=== PATIENT | male | born 1980 | race African-American/Black ===

== ENCOUNTER 2018-04-11 15:09 | Emergency (ER) | payer SELFPAY ==
[2018-04-11 15:16] VITALS: BP 119/76; PULSE 93; RESP 20; TEMP 37; O2SAT 99
--- NOTE | 2018-04-11 15:39 | W.ED.GENAD ---
Discharge Plan Disposition Patient Disposition: HOME Condition: Good Discharge Details Chief Complaint: RespSymp Clinical Impression: URI (upper respiratory infection) Primary Care Provider: Carley Mercado ED Provider: Kvng Chu Home Meds and New Rx's Prescriptions: No Action acetaminophen [Tylenol] 325 mg Tablet 2 RF: 0 Discharge Instructions Instructions: Upper Respiratory Infection (ED) Additional Instructions: Please drink 8-10 cups of water per day. Take Tylenol or Motrin if you have any sore throat that develops. Please stop smoking immediately. If you do go to work please wear a mask. Please wash her hands regularly. If you notice any worsening of your symptoms, or any new symptoms such as vomiting, diarrhea, fever, chills, shortness of breath, chest pain, numbness, weakness, or fainting , please return immediately to the emergency department for reevaluation. Please follow up with your primary care provider as soon as possible for reassessment and reevaluation. As always, it was a pleasure participating in your medical care today. Stand Alone Forms: Work Release Referrals: Carley Mercado [Primary Care Provider] - Medical Decision Making MDM Narrative Medical decision making narrative: This is a very pleasant 38-year-old male who presents for evaluation of less than 12 hours of a dry nonproductive cough with no associated fever chills sore throat. Physical exam shows no signs of otitis media, significant erythema in the oropharynx, or other abnormalities. He has no red flags of hemoptysis, trauma, fever or chills. Physical exam demonstrates clear lung sounds, normal vital signs, no tachycardia or hypoxemia. Feels symptoms may be combination of mild bronchitis from his chronic smoking and an early upper respiratory infection. Is asking for a work note and I think this is reasonable. I feel that the patient be discharged home with instructions for continued fluid intake, Tylenol or Motrin if he does develop sore throat, and prompt return if his symptoms worsen. We discussed red flags for stricture and the patient understands. I did encourage the patient to stop smoking immediately. I have extensively reviewed the treatment plan and discharge instructions with the patient. I have addressed all patient concerns at this time. The patient was made aware of what symptoms to monitor for that would warrant a return to the emergency department. Discussed the plan with the patient, they demonstrate verbal understanding and agreement with our assessment and plan at this time. HPI - General Adult General Date/Time Provider Initiated Documentation: 04/11/18 15:39. HPI Narrative: This is a 38-year-old -[place] male with past medical history of an appendectomy who smokes 1 pack per day, who presents today for 12 hours of dry nonproductive cough with no associated sore throat, fever, chills, chest pain, shortness of breath, numbness, tingling, or weakness. His symptoms are not improved or relieved by anything in particular. He denies any arm or neck pain. He denies any hemoptysis. He denies any other associated symptoms. No other complaints at this time. Patient states that I really am just here to get a work note, I have to go to work at 4 PM denies any IV or illicit drug use. He has no other complaints at this time. Related Data Home Medications Medication Instructions Recorded Confirmed acetaminophen [Tylenol] 2 04/11/18 Allergies Allergy/AdvReac Type Severity Reaction Status Date / Time Sulfa (Sulfonamide Allergy Unverified 09/21/17 06:15 Antibiotics) General Stated Complaint: RespSymp TATUM: 4 Review of Systems Review of Systems 10 point review of systems was performed, pertinent positives and negatives are noted in the history of present illness. [facility] Social History Smoking/Tobacco Use Status: Current every day Exam Narrative Exam Narrative: 1.Const: Well-nourished, Well-developed, appearing stated age 2.Eyes: PERRL, no conjunctival injection, and symmetrical lids. 3.ENT: Atraumatic external nose and ears. Moist MM. Neck: Symmetric, trachea midline, No thyromegaly. No significant cervical lymphadenopathy. No significant erythema in the posterior oropharynx. 4.CVS: +S1/S2, No murmurs or gallops. Peripheral pulses 2+ and equal in all extremities. Brisk capillary refill in all extremities. 5.RESP: Unlabored respiratory effort. Clear to auscultation bilaterally. No wheezes rales or rhonchi 6.GI: Soft, Nontender/Nondistended, No hepatosplenomegaly. No guarding or rebound. 7.MSK: Normocephalic/Atraumatic, Extremities w/o deformity or ttp No cyanosis or clubbing, Normal movement of all extremities 8.Skin: Warm, Dry. No rashes or lesions. 9.Neuro: tubing tester II-XII grossly intact. Sensation grossly intact, no focal neurologic deficits. 10.Psych: (AAO) x3. Appropriate mood and affect Course Vital Signs Temperature 37 C 04/11/18 15:16 Pulse 93 H 04/11/18 15:16 Respiratory Rate 20 04/11/18 15:16 Blood Pressure 119/76 04/11/18 15:16 Pulse Oximetry 99 04/11/18 15:16 Temperature 37 C 04/11/18 15:16 Pulse 93 H 04/11/18 15:16 Respiratory Rate 20 04/11/18 15:16 Blood Pressure 119/76 04/11/18 15:16 Pulse Oximetry 99 04/11/18 15:16
--- NOTE | 2018-04-11 15:43 | ED.GENADUL_ITS ---
Discharge Plan Disposition Patient Disposition: HOME Condition: Good Discharge Details Chief Complaint: RespSymp Clinical Impression: URI (upper respiratory infection) Primary Care Provider: Carley Mercado ED Provider: Kvng Chu Home Meds and New Rx's Prescriptions: No Action acetaminophen [Tylenol] 325 mg Tablet 2 RF: 0 Discharge Instructions Instructions: Upper Respiratory Infection (ED) Additional Instructions: Please drink 8-10 cups of water per day. Take Tylenol or Motrin if you have any sore throat that develops. Please stop smoking immediately. If you do go to work please wear a mask. Please wash her hands regularly. If you notice any worsening of your symptoms, or any new symptoms such as vomiting, diarrhea, fever, chills, shortness of breath, chest pain, numbness, weakness, or fainting , please return immediately to the emergency department for reevaluation. Please follow up with your primary care provider as soon as possible for reassessment and reevaluation. As always, it was a pleasure participating in your medical care today. Stand Alone Forms: Work Release Referrals: Carley Mercado [Primary Care Provider] - Medical Decision Making MDM Narrative Medical decision making narrative: This is a very pleasant 38-year-old male who presents for evaluation of less than 12 hours of a dry nonproductive cough with no associated fever chills sore throat. Physical exam shows no signs of otitis media, significant erythema in the oropharynx, or other abnormalities. He has no red flags of hemoptysis, trauma, fever or chills. Physical exam demonstrates clear lung sounds, normal vital signs, no tachycardia or hypoxemia. Feels symptoms may be combination of mild bronchitis from his chronic smoking and an early upper respiratory infection. Is asking for a work note and I think this is reasonable. I feel that the patient be discharged home with instructions for continued fluid intake, Tylenol or Motrin if he does develop sore throat, and prompt return if his symptoms worsen. We discussed red flags for stricture and the patient understands. I did encourage the patient to stop smoking immediately. I have extensively reviewed the treatment plan and discharge instructions with the patient. I have addressed all patient concerns at this time. The patient was made aware of what symptoms to monitor for that would warrant a return to the emergency department. Discussed the plan with the patient, they demonstrate verbal understanding and agreement with our assessment and plan at this time. HPI - General Adult General Date/Time Provider Initiated Documentation: 04/11/18 15:39 . HPI Narrative: This is a 38-year-old -[place] male with past medical history of an appendectomy who smokes 1 pack per day, who presents today for 12 hours of dry nonproductive cough with no associated sore throat, fever, chills, chest pain, shortness of breath, numbness, tingling, or weakness. His symptoms are not improved or relieved by anything in particular. He denies any arm or neck pain. He denies any hemoptysis. He denies any other associated symptoms. No other complaints at this time. Patient states that I really am just here to get a work note, I have to go to work at 4 PM denies any IV or illicit drug use. He has no other complaints at this time. Related Data Home Medications Medication Instructions Recorded Confirmed acetaminophen [Tylenol] 2 04/11/18 Allergies Allergy/AdvReac Type Severity Reaction Status Date / Time Sulfa (Sulfonamide Allergy Unverified 09/21/17 06:15 Antibiotics) General Stated Complaint: RespSymp TATUM: 4 Review of Systems Review of Systems 10 point review of systems was performed, pertinent positives and negatives are noted in the history of present illness. [facility] Social History Smoking/Tobacco Use Status: Current every day Exam Narrative Exam Narrative: 1.Const: Well-nourished, Well-developed, appearing stated age 2.Eyes: PERRL, no conjunctival injection, and symmetrical lids. 3.ENT: Atraumatic external nose and ears. Moist MM. Neck: Symmetric, trachea midline, No thyromegaly. No significant cervical lymphadenopathy. No significant erythema in the posterior oropharynx. 4.CVS: +S1/S2, No murmurs or gallops. Peripheral pulses 2+ and equal in all extremities. Brisk capillary refill in all extremities. 5.RESP: Unlabored respiratory effort. Clear to auscultation bilaterally. No wheezes rales or rhonchi 6.GI: Soft, Nontender/Nondistended, No hepatosplenomegaly. No guarding or rebound. 7.MSK: Normocephalic/Atraumatic, Extremities w/o deformity or ttp No cyanosis or clubbing, Normal movement of all extremities 8.Skin: Warm, Dry. No rashes or lesions. 9.Neuro: applied psychology chair II-XII grossly intact. Sensation grossly intact, no focal neurologic deficits. 10.Psych: (AAO) x3. Appropriate mood and affect Course Vital Signs Temperature 37 C 04/11/18 15:16 Pulse 93 H 04/11/18 15:16 Respiratory Rate 20 04/11/18 15:16 Blood Pressure 119/76 04/11/18 15:16 Pulse Oximetry 99 04/11/18 15:16 Temperature 37 C 04/11/18 15:16 Pulse 93 H 04/11/18 15:16 Respiratory Rate 20 04/11/18 15:16 Blood Pressure 119/76 04/11/18 15:16 Pulse Oximetry 99 04/11/18 15:16
== END 2018-04-11 15:43 | disposition home or self-care (01) ==
PROVIDERS: Emergency Provider Student in an Organized Health Care Education/Training Program; PCP Nurse Practitioner Family
DX: J06.9 Acute upper respiratory infection, unspecified (principal); F17.210 Nicotine dependence, cigarettes, uncomplicated
CPT/HCPCS: 99282

== ENCOUNTER 2018-06-04 08:07 | Outpatient (RCR) | payer SELFPAY ==
--- NOTE | 2018-06-04 08:09 | COCO.VHC ---
New/Renewal Application Status: Renewal Application Submitted?: Yes Date Submitted:: 05/21/18 [facility] REP Name:: Brent Notes:: Adriano and I called the [facility] ansd did the renewal over the phone. He has a doctors appoitnment coming up so we also notified them of this appointment.
--- NOTE | 2018-06-04 08:11 | PDOC.VHC_ITS ---
New/Renewal Application Status: Renewal Application Submitted?: Yes Date Submitted:: 05/21/18 [facility] REP Name:: Brent Notes:: Adriano and I called the [facility] ansd did the renewal over the phone. He has a doctors appoitnment coming up so we also notified them of this appointment.
== END 2018-07-02 23:59 | disposition home or self-care (01) ==
LOC: COCO 08:07
PROVIDERS: PCP Nurse Practitioner Family; Visit Provider Nurse Practitioner Family
DX: R69 Illness, unspecified (principal)

== ENCOUNTER 2018-12-02 07:39 | Emergency (ER) | payer MEDICAID, SELFPAY ==
[2018-12-02 07:43] VITALS: BP 149/98; PULSE 103; RESP 12; TEMP 36.6; O2SAT 98
--- NOTE | 2018-12-02 07:58 | W.ED.GENAD ---
Discharge Plan Disposition Patient Disposition: HOME Condition: Fair Discharge Details Chief Complaint: DentalOral Clinical Impression: Abscess, dental Primary Care Provider: None,None ED Provider: Danica Dawson Home Meds and New Rx's Prescriptions: New clindamycin HCl 150 mg capsule 450 mg PO TID Qty: 63 RF: 0 ibuprofen 600 mg tablet 600 mg PO QID PRN (Reason: pain) Qty: 20 RF: 0 Continued acetaminophen [Tylenol] 325 mg Tablet 2 RF: 0 ibuprofen 600 mg Tablet 600 mg PO TID RF: 0 Discharge Instructions Instructions: Dental Abscess (ED) Additional Instructions: Encourage hydration. Continue with Tylenol and ibuprofen. Please take clindamycin as prescribed, 3 tablets 3 times a day for the next 7 days. If you develop fever/chills, increased pain, increased swelling, inability or difficulty opening your mouth, difficulty swollowing or other new/worsening symptoms please seek care urgently once again. Keep upcoming appointment with your dentist Stand Alone Forms: Work Release Medical Decision Making Patient is a 38-year-old male presented today with chief complaint of right lower dental pain. Reports that he has been having pain for the past several weeks in this area but that over the past week it greatly increased. Concern for infection is seen at this morning when shaving the right lower aspect of his face was swollen. He denies any fevers or chills. Denies other any other recent illness. Patient has an upcoming appointment with a dentist but was unable to get with and with them sooner and advised to be assessed in the emergency department. On exam, patient appears in no acute distress, is nontoxic appearing. Does have notable swelling and an abscess consistent with the area of swelling along the buccal side of the right lower dentition. Patient I discussed diagnosis of abscess. We discussed the risk/benefits of drainage and expected procedural steps. He was understanding and wished to proceed Procedure: Area was first anesthetized with Hurricaine gel. The area was then further anesthetized with 1% lidocaine plain, 2 cc was injected. The sufficiently anesthetized the area. 11 blade was used to incise the area. Scant amount of thick yellow drainage was extracted. The area was massaged and attempt to extract as much as possible. Patient use swish and swallow technique to try and further promote extraction. He tolerated this procedure well. Patient I discussed care of the incised area. We discussed new/worsening symptoms and when he should seek care urgently once again. He has an upcoming appointment with his dentist. Advised the only keep this even if symptoms improve. Patient will be placed on clindamycin for infection. He is requesting prescription for ibuprofen. All of his questions and concerns were addressed and he is in agreement with this plan. Patient does not have primary care, I have asked our pharmacist critical care to help facilitate primary care appointment HPI General Mode of arrival: ambulatory. Date/Time Provider Initiated Documentation: 12/02/18 07:58. Limitations to Documentation: no limitations. Information obtained by: patient and RN notes reviewed. History of Present Illness 38 year old M presents to the emergency department with the chief complaint of right lower dental pain, described as severe, with intensity rated at 10. Quality is described as aching, and is localized to the mouth. Patient reports no radiation. Patient started experiencing this week(s) and it has been constant. No relieving factors improve symptom(s), Eating worsens symptoms . Patient notes no other symptoms.; denies chest pain, cough, diaphoresis, fever/chills, headaches, nausea/vomiting, rash and shortness of breath. Patient did receive the following treatments prior to arrival, none Related Data Home Medications Medication Instructions Recorded Confirmed acetaminophen [Tylenol] 2 04/11/18 clindamycin HCl 450 mg PO TID #63 cap 12/02/18 ibuprofen 600 mg PO QID PRN #20 tab 12/02/18 ibuprofen 600 mg PO TID 12/02/18 12/02/18 Previous Rx's Medication Instructions Recorded clindamycin HCl 450 mg PO TID #63 cap 12/02/18 ibuprofen 600 mg PO QID PRN #20 tab 12/02/18 Allergies Allergy/AdvReac Type Severity Reaction Status Date / Time Sulfa (Sulfonamide Allergy Unverified 12/02/18 07:47 Antibiotics) General Stated Complaint: DentalOral TATUM: 4 Review of Systems Constitutional Reports as per HPI, Denies chills, Denies fatigue, Denies fever(s), Denies headache(s) and Denies poor appetite Eyes Denies change in vision and Denies irritation ENT Reports as per HPI, Reports dental pain, Denies dysphagia, Denies dizziness, Denies dry mouth, Denies ear discharge, Denies otalgia, Reports facial pain, Denies headache(s), Denies hoarseness, Denies lip swelling, Denies nasal congestion, Denies odynophagia and Denies sore throat Cardiovascular Reports as per HPI and Denies chest pain Respiratory Reports as per HPI and Denies cough Gastrointestinal Reports as per HPI, Denies dysphagia, Denies nausea, Denies odynophagia and Denies vomiting Integumentary/Breasts Reports as per HPI, Denies erythema, Denies rash and Denies skin pain Neurologic Reports as per HPI, Denies dizziness and Denies headache(s) Endocrine Denies fatigue Allergic/Immunologic Denies lip swelling [facility] Social History Smoking/Tobacco Use Status: Current every day Drug use: Occasionally Do you feel safe at home: Yes Do you feel safe in your relationship?: Yes Exam Const General: cooperative, healthy appearing, comfortable, no acute distress, well developed and well groomed Nutritional Appearance: average body habitus and well nourished Orientation: alert and awake HENMT Head: normal to inspection, normocephalic and atraumatic Ears: hearing grossly normal bilaterally, external ears normal and TM's normal bilaterally General nose exam: external nose normal and nares normal Face and sinus: sinuses nontender and face asymmetric (patient has swelling noted along right inferior mandibular edge) Mouth: oral mucosae normal, lip normal and tongue normal Teeth and gingiva: abnormal dentition (broken tooth) Throat: posterior oropharynx normal, tonsils normal and uvula midline Eyes General: appearance normal, both eyes and all related structures Neck Neck: normal visual inspection, full ROM, no lymphadenopathy, supple and no anterior neck swelling Resp Effort & Inspection: normal respiratory effort, able to speak in complete sentences and no respiratory distress Auscultation: clear to auscultation bilaterally, no rales, no rhonchi and no wheezes Cardio Rate: regular rate Rhythm: regular rhythm Heart Sounds: S1 normal and S2 normal Skin General skin exam: no rashes or lesions noted Trauma: no lacerations or abrasions Neuro General: alert and awake Cognition: normal cognition Speech: speech normal Gait: normal gait Psych Appearance: grossly normal and well kempt Mental Status: mental status grossly normal Speech and Movement: speech and movement normal Course Vital Signs Temperature 36.6 C 12/02/18 07:43 Pulse 103 H 12/02/18 07:43 Respiratory Rate 12 12/02/18 07:43 Blood Pressure 149/98 H 12/02/18 07:43 Pulse Oximetry 98 12/02/18 07:43 Temperature 36.6 C 12/02/18 07:43 Temperature Source Temporal Artery Scan 12/02/18 07:43 Pulse 103 H 12/02/18 07:43 Respiratory Rate 12 12/02/18 07:43 Respiratory Effort Non-Labored 12/02/18 07:45 Blood Pressure 149/98 H 12/02/18 07:43 Blood Pressure Position Sitting 12/02/18 07:43 Pulse Oximetry 98 12/02/18 07:43 Oxygen Delivery Method Blow by 12/02/18 07:43 Oxygen Flow Rate 0 12/02/18 07:43 Pain Level 10 12/02/18 07:43
--- NOTE | 2018-12-02 08:07 | ED.GENADUL_ITS ---
Discharge Plan Disposition Patient Disposition: HOME Condition: Fair Discharge Details Chief Complaint: DentalOral Clinical Impression: Abscess, dental Primary Care Provider: None,None ED Provider: Danica Dawson Home Meds and New Rx's Prescriptions: New clindamycin HCl 150 mg capsule 450 mg PO TID Qty: 63 RF: 0 ibuprofen 600 mg tablet 600 mg PO QID PRN (Reason: pain) Qty: 20 RF: 0 Continued acetaminophen [Tylenol] 325 mg Tablet 2 RF: 0 ibuprofen 600 mg Tablet 600 mg PO TID RF: 0 Discharge Instructions Instructions: Dental Abscess (ED) Additional Instructions: Encourage hydration. Continue with Tylenol and ibuprofen. Please take clindamycin as prescribed, 3 tablets 3 times a day for the next 7 days. If you develop fever/chills, increased pain, increased swelling, inability or difficulty opening your mouth, difficulty swollowing or other new/worsening symptoms please seek care urgently once again. Keep upcoming appointment with your dentist Stand Alone Forms: Work Release Medical Decision Making Patient is a 38-year-old male presented today with chief complaint of right lower dental pain. Reports that he has been having pain for the past several weeks in this area but that over the past week it greatly increased. Concern for infection is seen at this morning when shaving the right lower aspect of his face was swollen. He denies any fevers or chills. Denies other any other recent illness. Patient has an upcoming appointment with a dentist but was unable to get with and with them sooner and advised to be assessed in the emergency department. On exam, patient appears in no acute distress, is nontoxic appearing. Does have notable swelling and an abscess consistent with the area of swelling along the buccal side of the right lower dentition. Patient I discussed diagnosis of abscess. We discussed the risk/benefits of drainage and expected procedural steps. He was understanding and wished to proceed Procedure: Area was first anesthetized with Hurricaine gel. The area was then further anesthetized with 1% lidocaine plain, 2 cc was injected. The sufficiently anesthetized the area. 11 blade was used to incise the area. Scant amount of thick yellow drainage was extracted. The area was massaged and attempt to extract as much as possible. Patient use swish and swallow technique to try and further promote extraction. He tolerated this procedure well. Patient I discussed care of the incised area. We discussed new/worsening symptoms and when he should seek care urgently once again. He has an upcoming appointment with his dentist. Advised the only keep this even if symptoms improve. Patient will be placed on clindamycin for infection. He is requesting prescription for ibuprofen. All of his questions and concerns were addressed and he is in agreement with this plan. Patient does not have primary care, I have asked our healthcare representative to help facilitate primary care appointment HPI General Mode of arrival: ambulatory . Date/Time Provider Initiated Documentation: 12/02/18 07:58 . Limitations to Documentation: no limitations . Information obtained by: patient and RN notes reviewed . History of Present Illness 38 year old M presents to the emergency department with the chief complaint of right lower dental pain, described as severe, with intensity rated at 10. Quality is described as aching, and is localized to the mouth. Patient reports no radiation. Patient started experiencing this week(s) and it has been constant. No relieving factors improve symptom(s), Eating worsens symptoms . Patient notes no other symptoms.; denies chest pain, cough, diaphoresis, fever/chills, headaches, nausea/vomiting, rash and shortness of breath. Patient did receive the following treatments prior to arrival, none Related Data Home Medications Medication Instructions Recorded Confirmed acetaminophen [Tylenol] 2 04/11/18 clindamycin HCl 450 mg PO TID #63 cap 12/02/18 ibuprofen 600 mg PO QID PRN #20 tab 12/02/18 ibuprofen 600 mg PO TID 12/02/18 12/02/18 Previous Rx's Medication Instructions Recorded clindamycin HCl 450 mg PO TID #63 cap 12/02/18 ibuprofen 600 mg PO QID PRN #20 tab 12/02/18 Allergies Allergy/AdvReac Type Severity Reaction Status Date / Time Sulfa (Sulfonamide Allergy Unverified 12/02/18 07:47 Antibiotics) General Stated Complaint: DentalOral TATUM: 4 Review of Systems Constitutional Reports as per HPI, Denies chills, Denies fatigue, Denies fever(s), Denies headache(s) and Denies poor appetite Eyes Denies change in vision and Denies irritation ENT Reports as per HPI, Reports dental pain, Denies dysphagia, Denies dizziness, Denies dry mouth, Denies ear discharge, Denies otalgia, Reports facial pain, Denies headache(s), Denies hoarseness, Denies lip swelling, Denies nasal congestion, Denies odynophagia and Denies sore throat Cardiovascular Reports as per HPI and Denies chest pain Respiratory Reports as per HPI and Denies cough Gastrointestinal Reports as per HPI, Denies dysphagia, Denies nausea, Denies odynophagia and Denies vomiting Integumentary/Breasts Reports as per HPI, Denies erythema, Denies rash and Denies skin pain Neurologic Reports as per HPI, Denies dizziness and Denies headache(s) Endocrine Denies fatigue Allergic/Immunologic Denies lip swelling [facility] Social History Smoking/Tobacco Use Status: Current every day Drug use: Occasionally Do you feel safe at home: Yes Do you feel safe in your relationship?: Yes Exam Const General: cooperative, healthy appearing, comfortable, no acute distress, well developed and well groomed Nutritional Appearance: average body habitus and well nourished Orientation: alert and awake HENMT Head: normal to inspection, normocephalic and atraumatic Ears: hearing grossly normal bilaterally, external ears normal and TM's normal bilaterally General nose exam: external nose normal and nares normal Face and sinus: sinuses nontender and face asymmetric (patient has swelling noted along right inferior mandibular edge) Mouth: oral mucosae normal, lip normal and tongue normal Teeth and gingiva: abnormal dentition (broken tooth) Throat: posterior oropharynx normal, tonsils normal and uvula midline Eyes General: appearance normal, both eyes and all related structures Neck Neck: normal visual inspection, full ROM, no lymphadenopathy, supple and no anterior neck swelling Resp Effort & Inspection: normal respiratory effort, able to speak in complete sentences and no respiratory distress Auscultation: clear to auscultation bilaterally, no rales, no rhonchi and no wheezes Cardio Rate: regular rate Rhythm: regular rhythm Heart Sounds: S1 normal and S2 normal Skin General skin exam: no rashes or lesions noted Trauma: no lacerations or abrasions Neuro General: alert and awake Cognition: normal cognition Speech: speech normal Gait: normal gait Psych Appearance: grossly normal and well kempt Mental Status: mental status grossly normal Speech and Movement: speech and movement normal Course Vital Signs Temperature 36.6 C 12/02/18 07:43 Pulse 103 H 12/02/18 07:43 Respiratory Rate 12 12/02/18 07:43 Blood Pressure 149/98 H 12/02/18 07:43 Pulse Oximetry 98 12/02/18 07:43 Temperature 36.6 C 12/02/18 07:43 Temperature Source Temporal Artery Scan 12/02/18 07:43 Pulse 103 H 12/02/18 07:43 Respiratory Rate 12 12/02/18 07:43 Respiratory Effort Non-Labored 12/02/18 07:45 Blood Pressure 149/98 H 12/02/18 07:43 Blood Pressure Position Sitting 12/02/18 07:43 Pulse Oximetry 98 12/02/18 07:43 Oxygen Delivery Method Blow by 12/02/18 07:43 Oxygen Flow Rate 0 12/02/18 07:43 Pain Level 10 12/02/18 07:43
== END 2018-12-02 08:38 | disposition home or self-care (01) ==
PROVIDERS: Emergency Provider Physician Assistant
DX: K04.7 Periapical abscess without sinus (principal); F17.210 Nicotine dependence, cigarettes, uncomplicated
CPT/HCPCS: 99283

== ENCOUNTER 2019-05-23 14:16 | Outpatient (REF) | payer MEDICAID, SELFPAY ==
[2019-05-23 18:43] LABS: HCT 44.2 % (40.0-50.0); HGB 14.6 g/dL (13.5-17.5); Mean Corpuscular Hemoglobin 28.3 pg (27.0-33.0); Mean Corpuscular Volume 85.7 fL (80-95); Mean Platelet Volume 11.7 fL (8.0-11.0); Platelet Count 237 x1000/uL (130-400); RBC 5.16 m/cumm (4.50-6.00); RBC Distribution Width 14.8 % (11.8-14.1); White Blood Cell Count 6.48 k/cumm (4.4-10.8)
[2019-05-23 18:51] LABS: ALT 34 U/L (16-63); AST 26 U/L (15-37); Albumin 4.1 g/dL (3.4-5.0); Alkaline Phosphatase 60 U/L (46-116); Anion Gap 9.4 mmol/L (3-11); BUN 13 mg/dL (7-18); Bilirubin, Total 0.3 mg/dL (0.2-1.0); CO2 29.6 mmol/L (21.0-32.0); CREATININE 1.33 mg/dL (0.70-1.30); Calcium 9.3 mg/dL (8.5-10.1); Calculated LDL 175 mg/dL; Chloride 103 mmol/L (98-107); Cholesterol 243 mg/dL (50-200); Glucose 88 mg/dL (70-100); HDL Cholesterol 52 mg/dL (40-60); Potassium 4.2 mmol/L (3.5-5.1); Sodium 142 mmol/L (136-145); Total Protein 7.7 g/dL (6.4-8.2); Triglyceride 82 mg/dL (30-150)
[2019-05-23 19:36] LABS: COMMENT (LAB VIEW ONLY) 180.52 mg/dL; Microalb ug/mg Crea 2.9 ug/mg Cr
== END 2019-05-23 14:36 ==
LOC: NCHCN 14:16
PROVIDERS: Visit Provider Nurse Practitioner Family
DX: Z13.220 Encounter for screening for lipoid disorders (principal); Z51.81 Encounter for therapeutic drug level monitoring
CPT/HCPCS: 80053; 80061; 85027; 82043; 82570

== ENCOUNTER 2020-02-17 14:07 | Outpatient (REF) | payer MEDICAID, SELFPAY ==
[2020-02-22 07:47] LABS: Codeine Negative ng/mL (Cutoff: 25); Dihydrocodeine Negative ng/mL (Cutoff: 25); Hydrocodone Negative ng/mL (Cutoff: 25); Hydromorphone Negative ng/mL (Cutoff: 25); Morphine Negative ng/mL (Cutoff: 25); Naloxone Negative ng/mL (Cutoff: 25); Norhydrocodone Negative ng/mL (Cutoff: 25); Noroxycodone 3407 ng/mL (Cutoff: 25); Noroxymorphone 46 ng/mL (Cutoff: 25); Opiates Interpretation Positive.
== END 2020-02-17 14:27 ==
LOC: NCHCN 14:07
PROVIDERS: Visit Provider Nurse Practitioner Family
DX: Z51.81 Encounter for therapeutic drug level monitoring (principal)
CPT/HCPCS: 80361

== ENCOUNTER 2020-08-02 19:44 | Outpatient (REF) | payer MEDICAID, SELFPAY ==
[2020-08-06 20:34] LABS: Methylphenidate 68 ng/mL; Ritalinic Acid 942 ng/mL
== END 2020-08-02 20:04 ==
LOC: NCHCN 19:44
PROVIDERS: Visit Provider Nurse Practitioner Family
DX: F15.20 Other stimulant dependence, uncomplicated (principal); Z51.81 Encounter for therapeutic drug level monitoring
CPT/HCPCS: 80360

== ENCOUNTER 2020-10-25 22:54 | Outpatient (REF) | payer MEDICAID, SELFPAY ==
[2020-10-31 11:23] LABS: Codeine Negative ng/mL (Cutoff: 25); Dihydrocodeine Negative ng/mL (Cutoff: 25); Hydrocodone 29 ng/mL (Cutoff: 25); Hydromorphone Negative ng/mL (Cutoff: 25); Morphine Negative ng/mL (Cutoff: 25); Naloxone Negative ng/mL (Cutoff: 25); Norhydrocodone 72 ng/mL (Cutoff: 25); Noroxycodone 12266 ng/mL (Cutoff: 25); Noroxymorphone 144 ng/mL (Cutoff: 25); Opiates Interpretation Positive.
== END 2020-10-25 22:55 | disposition home or self-care (01) ==
LOC: NCHCN 22:54
PROVIDERS: Visit Provider Nurse Practitioner Family
DX: F15.20 Other stimulant dependence, uncomplicated (principal); Z51.81 Encounter for therapeutic drug level monitoring
CPT/HCPCS: 80361; 80362

== ENCOUNTER 2021-03-14 10:26 | Outpatient (REF) | payer MEDICAID, SELFPAY ==
[2021-03-18 07:35] LABS: Amphetamine Negative ng/mL (Cutoff: 25); Amphetamines Interpretation Negative.; MDA (Ecstasy Metabolite) Negative ng/mL (Cutoff: 25); MDMA (Ecstasy) Negative ng/mL (Cutoff: 25); Methamphetamine Negative ng/mL (Cutoff: 25); Phentermine Negative ng/mL (Cutoff: 25); Pseudoephedrine/Ephedrine Negative ng/mL (Cutoff: 25)
== END 2021-03-14 10:27 | disposition home or self-care (01) ==
LOC: NCHCN 10:26
PROVIDERS: Visit Provider Nurse Practitioner
DX: F15.20 Other stimulant dependence, uncomplicated (principal); Z51.81 Encounter for therapeutic drug level monitoring
CPT/HCPCS: 80324

== ENCOUNTER 2021-04-29 15:19 | Outpatient (REF) | payer MEDICAID, SELFPAY ==
[2021-05-04 05:34] LABS: Methylphenidate 154 ng/mL (Cutoff: 10); Ritalinic Acid 5416 ng/mL (Cutoff: 50)
== END 2021-04-29 15:20 | disposition home or self-care (01) ==
LOC: NCHCN 15:19
PROVIDERS: Visit Provider Nurse Practitioner
DX: Z51.81 Encounter for therapeutic drug level monitoring (principal)
CPT/HCPCS: 80360

== ENCOUNTER 2021-07-28 10:27 | Emergency (ER) | payer MEDICAID, SELFPAY ==
[2021-07-28] VITALS (41 sets, daily range): BP systolic 114–145; BP diastolic 70–84; PULSE 53–94; RESP 11–24; TEMP 36–36.5; O2SAT 98–100
--- NOTE | 2021-07-28 10:15 | RT.EKG_ITS ---
APPROVED REPORT Exam: Resting ECG Reason for Exam: overdose Patient Location: E HR:48 bpm ECG Measurements Heart Rate 48 AXIS IA 131 P 69 QRSd 74 QRS 66 QT 484 T 62 QTc 431 Conclusion Sinus bradycardia...rate< 60. Sinus. No STEMI. I have reviewed and interpreted ECG and agree with software generated interpretation.
[2021-07-28] MEDS: Normal Saline 1,000 ML 1000 ML IV (10:59)
--- NOTE | 2021-07-28 11:00 | ED.GENADUL_ITS ---
Discharge Plan Disposition Patient Disposition: HOME Condition: Improving Discharge Details Clinical Impression: Overdose of methylphenidate, Stress at home Primary Care Provider: None,None ED Provider: Naima Francisco Home Meds and New Rx's Prescriptions: Continued methylphenidate HCl 20 mg tablet 20 mg PO BID RF: 0 methadone 10 mg/5 mL Solution 65 mg PO DAILY RF: 0 Discharge Instructions Instructions: Methylphenidate, Regular and Slow Release (By mouth), Weakness (ED), Dizziness (ED) Additional Instructions: Take your regular medications as prescribed. Overdose of some medications have an increased risk of disability or . Follow-up with your primary care doctor tomorrow for reevaluation and for continued medication management. [facility] human services will follow up with you tomorrow for reevaluation. Follow-up with the parent coach as directed. Return immediately to the emergency department if you develop any worsening or new concerning symptoms. Discharge Data Discharge Physician: Naima Francisco Medical Decision Making 41-year-old male with a history ADHD on Ritalin, anxiety with depression, adjustment disorder with opiate use in remission on methadone presents for methylphenidate overdose over a 48-hour period presents with dizziness, generalized weakness, and nausea this morning. Symptoms better after taking a portion of his methadone dose this morning. Patient is oriented x3 and drowsy but arousable to voice and able to answer questions appropriately. He appears quite sleepy but nontoxic. Vitals within normal limits. EKG notes a rate of 48, sinus, no STEMI and nondiagnostic. Heart rate now improved to mid 50s. Case discussed with poison control who noted that as patient's last dose of methylphenidate was yesterday approximately 24 hours ago, suspect his drowsiness is the post crash after taking additional methylphenidate. No other acute recommendations other than metabolic and toxic labs. If patient labs are unremarkable and he feels better, can be discharged home after a couple hour period. Labs reviewed. Normal white blood cell count, hemoglobin, lactate. Glucose low at 73. Troponin negative. Urinalysis notes 5-10 WBCs and RBCs, urine culture s ent. Salicylate 7.4 which is within therapeutic range. Patient denied taking cough or cold medication or known aspirin. Discussed with pharmacy and methylphenidate does not contain salicylates but patient is a smoker which likely can be contained in menthol cigarettes. No acute recommendations as it is within therapeutic range. We will give patient food and attempt to ambulate. We will have mental health evaluate. Repeat BMP noted normalization or anion gap. Miguelina from mental health unable to evaluate due to conflict of interest due to interpersonal common relationship. There are no other staff members from [facility] human services able to evaluate. As patient has continually denied SI or HI, and continually endorsed that he took medication to stay awake and deal with stress at home, do not see medication for holding patient in the ED until an additional [facility] staff member available. [facility] will call pt at home tomorrow to reassess. Patient has 1 tab of his methylphenidate left. Advised that he needs to call his PCP Ruth Rob for further medication management and will not give a refill of this medication at this time. He will follow-up for his methadone dos ing tomorrow. Medical Records Medical records reviewed: Yes I reviewed the patient's medical records. Lab Data Lab results reviewed: Yes I reviewed the patient's lab results. Labs: 07/28/21 10:39 Urine - Reflex from Ua Urine Culture - Pending Laboratory Tests Range/Units 07/28/21 07/28/21 07/28/21 10:37 10:37 10:37 WBC (4.4-10.8) 10^3/uL RBC (4.36-5.78) 10^6/uL Hgb (13.5-17.5) g/dL Hct (40.0-50.0) % MCV (80-95) fL MCH (27.0-33.0) pg MCHC (32.0-36.0) % RDW (11.8-14.1) % Plt Count (130-400) 10^3/uL MPV (8.0-11.0) fL Immature Gran % Neutrophils % Lymphocytes % Monocytes % Eosinophils % Basophils % Nucleated RBC % % Absolute Neutrophils (1.2-6.7) 10^3/uL Absolute Lymphocytes (1.2-3.4) 10^3/uL Absolute Monocytes (0.1-0.8) 10^3/uL Absolute Eosinophils (0.0-0.7) 10^3/uL Absolute Basophils (0.0-0.2) 10^3/uL VBG Lactate (0.6-1.4) mmol/L 1.4 Sodium (136-145) mmol/L Potassium (3.5-5.1) mmol/L Chloride (98-107) mmol/L Carbon Dioxide (21.0-32.0) mmol/L Anion Gap (3-11) mmol/L BUN (7-18) mg/dL Creatinine (0.70-1.30) mg/dL Estimated GFR/1.73 m2 (mL/min/1.73m2) Glucose (74-106) mg/dL Calcium (8.5-10.1) mg/dL Magnesium (1.8-2.4) mg/dL Total Bilirubin (0.2-1.0) mg/dL AST (15-37) U/L ALT (16-63) U/L Alkaline Phosphatase (46-116) U/L Troponin I (<or=60) ng/L Total Protein (6.4-8.2) g/dL Albumin (3.4-5.0) g/dL Urine Color (Yellow) Urine Clarity (Clear) Urine pH (5-8) Ur Specific [place] (1.005-1.025) Urine Protein (Negative) mg/dL Urine Ketones (Negative) mg/dL Urine Blood (Negative) Urine Nitrite (Negative) Urine Bilirubin (Negative) Urine Urobilinogen (Up TO 0.2) EU/dL Ur Leukocyte Esterase (Negative) Urine RBC (0-2) HPF Urine WBC (0-5) HPF Ur Epithelial Cells (Negative) HPF Urine Crystals (Negative) HPF Urine Bacteria (Negative) HPF Urine Casts (Negative) LPF Urine Mucus (Negative) Ur Culture Indicated? Urine Glucose (Negative) mg/dL Salicylates (<2.8) mg/dL 7.4 Urine Opiates Screen (Negative) Urine Methadone Screen (Negative) Acetaminophen (10-30) ug/mL < 2 Ur Barbiturates Screen (Negative) Ur Tricyclics Screen (Negative) Ur Amphetamines Screen (Negative) U Benzodiazepines Scrn (Negative) Urine Cocaine Screen (Negative) Ur THC Screen (Negative) Ethyl Alcohol (<10) mg/dL < 3.0 Range/Units 07/28/21 07/28/21 07/28/21 10:37 10:37 10:39 WBC (4.4-10.8) 10^3/uL 9.24 RBC (4.36-5.78) 10^6/uL 5.39 Hgb (13.5-17.5) g/dL 14.9 Hct (40.0-50.0) % 47.1 MCV (80-95) fL 87.4 MCH (27.0-33.0) pg 27.6 MCHC (32.0-36.0) % 31.6 L RDW (11.8-14.1) % 15.1 H Plt Count (130-400) 10^3/uL 218 MPV (8.0-11.0) fL 10.4 Immature Gran % 0.6 Neutrophils % 47.3 Lymphocytes % 39.0 Monocytes % 10.1 Eosinophils % 2.4 Basophils % 0.6 Nucleated RBC % % 0 Absolute Neutrophils (1.2-6.7) 10^3/uL 4.37 Absolute Lymphocytes (1.2-3.4) 10^3/uL 3.60 H Absolute Monocytes (0.1-0.8) 10^3/uL 0.93 H Absolute Eosinophils (0.0-0.7) 10^3/uL 0.22 Absolute Basophils (0.0-0.2) 10^3/uL 0.06 VBG Lactate (0.6-1.4) mmol/L Sodium (136-145) mmol/L 136 Potassium (3.5-5.1) mmol/L 3.8 Chloride (98-107) mmol/L 97 L Carbon Dioxide (21.0-32.0) mmol/L 26.8 Anion Gap (3-11) mmol/L 12.2 H BUN (7-18) mg/dL 15 Creatinine (0.70-1.30) mg/dL 1.3 Estimated GFR/1.73 m2 (mL/min/1.73m2) >= 60.00 Glucose (74-106) mg/dL 73 L Calcium (8.5-10.1) mg/dL 10.0 Magnesium (1.8-2.4) mg/dL 2.6 H Total Bilirubin (0.2-1.0) mg/dL 0.7 AST (15-37) U/L 49 H ALT (16-63) U/L 38 Alkaline Phosphatase (46-116) U/L 89 Troponin I (<or=60) ng/L < 50 Total Protein (6.4-8.2) g/dL 9.3 H Albumin (3.4-5.0) g/dL 4.6 Urine Color (Yellow) Urine Clarity (Clear) Urine pH (5-8) Ur Specific [place] (1.005-1.025) Urine Protein (Negative) mg/dL Urine Ketones (Negative) mg/dL Urine Blood (Negative) Urine Nitrite (Negative) Urine Bilirubin (Negative) Urine Urobilinogen (Up TO 0.2) EU/dL Ur Leukocyte Esterase (Negative) Urine RBC (0-2) HPF Urine WBC (0-5) HPF Ur Epithelial Cells (Negative) HPF Urine Crystals (Negative) HPF Urine Bacteria (Negative) HPF Urine Casts (Negative) LPF Urine Mucus (Negative) Ur Culture Indicated? Urine Glucose (Negative) mg/dL Salicylates (<2.8) mg/dL Urine Opiates Screen (Negative) Negative Urine Methadone Screen (Negative) Positive A Acetaminophen (10-30) ug/mL Ur Barbiturates Screen (Negative) Negative Ur Tricyclics Screen (Negative) Negative Ur Amphetamines Screen (Negative) Negative U Benzodiazepines Scrn (Negative) Negative Urine Cocaine Screen (Negative) Negative Ur THC Screen (Negative) Positive A Ethyl Alcohol (<10) mg/dL Range/Units 07/28/21 07/28/21 10:39 13:30 WBC (4.4-10.8) 10^3/uL RBC (4.36-5.78) 10^6/uL Hgb (13.5-17.5) g/dL Hct (40.0-50.0) % MCV (80-95) fL MCH (27.0-33.0) pg MCHC (32.0-36.0) % RDW (11.8-14.1) % Plt Count (130-400) 10^3/uL MPV (8.0-11.0) fL Immature Gran % Neutrophils % Lymphocytes % Monocytes % Eosinophils % Basophils % Nucleated RBC % % Absolute Neutrophils (1.2-6.7) 10^3/uL Absolute Lymphocytes (1.2-3.4) 10^3/uL Absolute Monocytes (0.1-0.8) 10^3/uL Absolute Eosinophils (0.0-0.7) 10^3/uL Absolute Basophils (0.0-0.2) 10^3/uL VBG Lactate (0.6-1.4) mmol/L Sodium (136-145) mmol/L 135 L Potassium (3.5-5.1) mmol/L 4.6 D Chloride (98-107) mmol/L 100 Carbon Dioxide (21.0-32.0) mmol/L 27.0 Anion Gap (3-11) mmol/L 8.0 BUN (7-18) mg/dL 16 Creatinine (0.70-1.30) mg/dL 1.3 Estimated GFR/1.73 m2 (mL/min/1.73m2) >= 60.00 Glucose (74-106) mg/dL 105 Calcium (8.5-10.1) mg/dL 8.8 Magnesium (1.8-2.4) mg/dL Total Bilirubin (0.2-1.0) mg/dL AST (15-37) U/L ALT (16-63) U/L Alkaline Phosphatase (46-116) U/L Troponin I (<or=60) ng/L Total Protein (6.4-8.2) g/dL Albumin (3.4-5.0) g/dL Urine Color (Yellow) Yellow Urine Clarity (Clear) Clear Urine pH (5-8) 5.5 Ur Specific [place] (1.005-1.025) 1.025 Urine Protein (Negative) mg/dL Negative Urine Ketones (Negative) mg/dL 80 H Urine Blood (Negative) Trace-intact H Urine Nitrite (Negative) Negative Urine Bilirubin (Negative) Negative Urine Urobilinogen (Up TO 0.2) EU/dL 0.2 Ur Leukocyte Esterase (Negative) Negative Urine RBC (0-2) HPF 5-10 H Urine WBC (0-5) HPF 5-10 Ur Epithelial Cells (Negative) HPF Negative Urine Crystals (Negative) HPF Negative Urine Bacteria (Negative) HPF Few Urine Casts (Negative) LPF 20-50 Hyaline Urine Mucus (Negative) Trace Ur Culture Indicated? Yes Urine Glucose (Negative) mg/dL Negative Salicylates (<2.8) mg/dL Urine Opiates Screen (Negative) Urine Methadone Screen (Negative) Acetaminophen (10-30) ug/mL Ur Barbiturates Screen (Negative) Ur Tricyclics Screen (Negative) Ur Amphetamines Screen (Negative) U Benzodiazepines Scrn (Negative) Urine Cocaine Screen (Negative) Ur THC Screen (Negative) Ethyl Alcohol (<10) mg/dL ECG Data Attestation: I personally reviewed and interpreted this ECG (s) as follows: Interpretation: Rate of 48, sinus, no acute ST elevation or depression. SC 131. QTc 431. HPI General Mode of arrival: EMS . Date/Time Provider Initiated Documentation: 07/28/21 10:39 . Limitations to Documentation: no limitations . Information obtained by: patient . HPI Narrative: Patient is a 41-year-old male with a history of ADHD on Ritalin, adjustment disorder, anxiety and depression and former opiate abuse in remission on methadone presents for overdose of methylphenidate over a 48-hour period. Patient states he took approximately 30 tablets of 20 mg methylphenidate over a 48-hour period to try to keep myself awake and to get over the stress of the holidays. Patient states he was crushing and snorting a 20 mg tablet every 15 minutes over this period and states his last dose was yesterday late morning. He states he has not taken any methylphenidate since yesterday late morning. He states he has been taking his normal dose of methadone of 65 mg, last regular dose yesterday morning. He states he has not slept much over the last 2 days until sleeping a few hours this morning. He states he woke up and felt dizzy, generally weak and nauseous and thought it was potentially due to withdrawal from his methadone so he took approximately 20 mg of liquid methadone with some relief of his symptoms. He states he called the ambulance for further evaluation of the symptoms. He states he mainly feels weak now and denies any dizziness, nausea, headache, chest pain, shortness breath, abdominal pain, vomiting, abdominal pain or diarrhea. He denies any other alcohol or drug use. He states he did not take any medication with plan to harm himself. He denies any thoughts of suicide or homicidal ideation. Related Data Home Medications Medication Instructions Recorded Confirmed methylphenidate HCl 20 mg tablet 20 mg PO BID 11/06/20 07/28/21 methadone 65 mg PO DAILY 07/28/21 07/28/21 Allergies Allergy/AdvReac Type Severity Reaction Status Date / Time Sulfa (Sulfonamide Allergy Unverified 07/28/21 10:48 Antibiotics) General Stated Complaint: OD/Poison TATUM: 2 Review of Systems All systems reviewed & are unremarkable except as noted in HPI and below Constitutional Constitutional: Reports as per HPI, Denies chills, Reports fatigue, Denies fever(s) and Reports weakness Eyes Eyes: Denies blurry vision ENT Ears, Nose, Mouth, and Throat: Reports dizziness, Denies sore throat and Denies throat swelling Cardiovascular Cardiovascular: Denies chest pain and Denies dyspnea Respiratory Respiratory: Denies cough and Denies dyspnea Gastrointestinal Gastrointestinal: Denies abdominal pain, Denies diarrhea, Reports nausea and Denies vomiting Genitourinary Genitourinary: Denies hematuria and Denies dysuria Musculoskeletal Musculoskeletal: Denies back pain and Denies numbness Integumentary/Breasts Skin/Breast: Denies lesions and Denies rash Neurologic Neurologic: Reports dizziness, Denies localized weakness, Denies numbness and Reports weakness Endocrine Endocrine: Reports fatigue Allergic/Immunologic Allergic/Immunologic: Denies throat swelling PFSH All Active Problems Overdose of methylphenidate (Acute) Stress at home (Acute) Medical History (Updated 07/28/21 @ 13:35 by Naima Francisco DO) ADHD Adjustment disorder Anxiety with depression Chronic lower back pain Degenerative joint disease of both hips Dental caries Eczema Headache Hx of head injury Hyperlipidemia Medication monitoring encounter Obesity (BMI 30.0-34.9) Right carpal tunnel syndrome Right shoulder pain Tobacco abuse Social History Smoking/Tobacco Use Status: Current every day Tobacco Type: cigarettes Smoking risk assessment performed?: Yes Alcohol Intake: former Drug use: Daily Substance use type: marijuana and prescription drug Details: methadone client Do you feel safe at home: Yes Do you feel safe in your relationship?: Yes Exam Const General: cooperative, comfortable and no acute distress Orientation: oriented x3 and other (Drowsy but arousable to voice and able to answer questions appropriately) [facility] Head: normal to inspection Ears: hearing grossly normal bilaterally, external ears normal and TM's normal bilaterally General nose exam: external nose normal Face and sinus: normal facial exam Mouth: mucous membranes dry Teeth and gingiva: dentition normal Throat: posterior oropharynx normal Eyes General: appearance normal, both eyes and all related structures Eyelids: eyelids normal Pupils: PERRL EOM: EOM intact bilaterally Neck Neck: normal visual inspection Lymphatic: no lymphadenopathy noted Chest Chest: normal inspection of the chest Resp Effort & Inspection: normal respiratory effort and able to speak in complete sentences Auscultation: clear to auscultation bilaterally Cardio Rate: regular rate Rhythm: regular rhythm GI Inspection: normal to inspection Palpation: soft, not firm, no guarding, no hepatosplenomegaly, no masses and nontender Auscultation: normal bowel sounds Back/Spine/Pelvis Back: no CVA tenderness Skin General skin exam: no rashes or lesions noted Neuro General: patient oriented x3, moves all extremities, no meningeal signs, no focal motor deficits, deep tendon reflexes 2+ bilaterally and other (Drowsy arousable to voice and able to answer questions appropriately) Cognition: normal cognition Speech: speech normal Gait: normal gait Motor: muscle tone normal throughout and strength 5/5 throughout Sensory Exam: no sensory deficits noted Extrem General: normal to inspection, full ROM and capillary refill normal Psych Appearance: grossly normal Mental Status: mental status grossly normal Speech and Movement: speech and movement normal Affect: normal affect Thought Process: normal Course Vital Signs Vital signs: Vital Signs Temperature 96.8 F L 07/28/21 10:28 Pulse 68 07/28/21 10:28 Respiratory Rate 18 07/28/21 10:28 Blood Pressure 115/70 07/28/21 10:28 Pulse Oximetry 98 07/28/21 10:28 Temperature 96.8 F L 07/28/21 10:28 Temperature Source Skin 07/28/21 10:28 Pulse 68 07/28/21 10:28 Respiratory Rate 13 07/28/21 10:42 Respiratory Effort 07/28/21 10:45 Respiratory Depth Normal 07/28/21 10:42 Respiratory Pattern Normal 07/28/21 10:42 Blood Pressure 115/70 07/28/21 10:28 Pulse Oximetry 98 07/28/21 10:28 Oxygen Delivery Method Room Air 07/28/21 10:28 Oxygen Flow Rate 0 07/28/21 10:28 Pain Level 0 07/28/21 10:28
[2021-07-28 11:09] LABS: Lactate 1.4 mmol/L (0.6-1.4)
[2021-07-28 11:12] LABS: Abs Immature Grans 0.06 10^3/uL (0.0-0.06); Absolute Basophil Count 0.06 10^3/uL (0.0-0.2); Absolute Eosinophil Count 0.22 10^3/uL (0.0-0.7); Absolute Monocyte Count 0.93 10^3/uL (0.1-0.8); Absolute Neutrophil Count 4.37 10^3/uL (1.2-6.7); Basophils % 0.6; Eosinophils % 2.4; HCT 47.1 % (40.0-50.0); HGB 14.9 g/dL (13.5-17.5); Immature Grans % 0.6; MCH 27.6 pg (27.0-33.0); MCHC 31.6 % (32.0-36.0); MCV 87.4 fL (80-95); MPV 10.4 fL (8.0-11.0); Monocytes % 10.1; Neutrophils % 47.3; Nucleated RBC 0 %; Platelet Count 218 10^3/uL (130-400); RBC 5.39 10^6/uL (4.36-5.78); RDW 15.1 % (11.8-14.1); RDW-SD 47.9 fL; WBC 9.24 10^3/uL (4.4-10.8)
[2021-07-28 11:14] LABS: Bilirubin Negative (Negative); Blood Trace-intact (Negative); Clarity Clear (Clear); Glucose Negative (Negative); Ketones 80 mg/dL (Negative); Leukocyte Esterase Negative (Negative); Nitrite Negative (Negative); Specific Gravity 1.025 (1.005-1.025); Urobilinogen 0.2 EU/dL (Up TO 0.2); pH 5.5 (5-8)
--- NOTE | 2021-07-28 11:23 | NUR.NOTE ---
spoke with brittny from [facility] she will come in and speak with the pt Nursing Note:
[2021-07-28 11:26] LABS: Bacteria Few HPF (Negative); C & S Indicated? Yes; Casts 20-50 Hyaline LPF (Negative); Crystals Negative HPF (Negative); Epithelial Cells Negative HPF (Negative); Mucus Trace (Negative)
[2021-07-28 11:28] LABS: Salicylate 7.4 mg/dL (<2.8)
[2021-07-28 11:29] LABS: Acetaminophen < 2 ug/mL (10-30)
[2021-07-28 11:34] LABS: ALT 38 U/L (16-63); AST 49 U/L (15-37); Albumin 4.6 g/dL (3.4-5.0); Alkaline Phosphatase 89 U/L (46-116); Anion Gap 12.2 mmol/L (3-11); BUN 15 mg/dL (7-18); Bilirubin, Total 0.7 mg/dL (0.2-1.0); CO2 26.8 mmol/L (21.0-32.0); CREATININE 1.3 mg/dL (0.70-1.30); Chloride 97 mmol/L (98-107); Glucose 73 mg/dL (74-106); Magnesium 2.6 mg/dL (1.8-2.4); Potassium 3.8 mmol/L (3.5-5.1); Sodium 136 mmol/L (136-145); Total Protein 9.3 g/dL (6.4-8.2)
[2021-07-28 11:35] LABS: *AMPHETAMINES SCREEN URINE Negative (Negative); *BARBITURATES SCREEN URINE Negative (Negative); *BENZODIAZEPINES SCREEN URINE Negative (Negative); Cannabinoids THC Positive (Negative); Cocaine Screen,Urine Negative (Negative); METHADONE URINE SCREEN Positive (Negative); OPIATES URINE SCREEN Negative (Negative)
[2021-07-28 11:36] LABS: ETHANOL BLOOD < 3.0 mg/dL (<10); Troponin I < 50 ng/L (<or=60)
[2021-07-28 11:36] LABS: Tricyclic Antidepressants Negative (Negative)
--- NOTE | 2021-07-28 12:45 | NUR.NOTE ---
pt provided with meal tray Nursing Note:
[2021-07-28 13:46] LABS: BUN 16 mg/dL (7-18); CREATININE 1.3 mg/dL (0.70-1.30); Calcium 8.8 mg/dL (8.5-10.1); Chloride 100 mmol/L (98-107); Glucose 105 mg/dL (74-106); Potassium 4.6 mmol/L (3.5-5.1); Sodium 135 mmol/L (136-145)
--- NOTE | 2021-07-28 14:23 | PDOC.MHCN_ITS ---
Date of service: 07/28/21 Time of Service: 14:23 Mental Health Crisis Note Presenting Issue How did you arrive at the ED and why did you come: Pt arrived via ambulance after reportedly o.d. on ritalin in an attempt to deal with stress and being tired. Precipitating Factors Pt denied ot the ED provider that he was SI or HI. Disposition BEHAVIOR: cooperative and respectful EYE CONTACT: good MOOD: unable to assess AFFECT: normal APPETITE: unable to assess SLEEP(trouble falling/staying asleep: unable to assess Plan After doing the Pt's intake this clinician believed she knew who this Pt was so asked on clarifying question to which he responded positively. This clinician informed the Pt who this clinician was and asked if he has a conflict with this clinician doing his assessment. He stated he did. This clinician spoke to [facility] blood bank supervisor as well as the ED provider and informed that this was a conflict for the Pt and offered for [facility] to outreach via phone tomorrow to do an assessment of need. All are okay with this plan. Signature Clinician's Name/Title: Miguelina Hitchcock MS, [facility] Emergency Services Clinician, [facility]
== END 2021-07-28 14:25 | disposition home or self-care (01) ==
PROVIDERS: Emergency Provider Physician Assistant
DX: T43.631A Poisoning by methylphenidate, accidental (unintentional), initial encounter (principal); R53.1 Weakness; R42 Dizziness and giddiness; R11.0 Nausea; F11.90 Opioid use, unspecified, uncomplicated
CPT/HCPCS: 36415; 36416; 80048; 80053; 80307; 82962; 93005; 96360; 99284; 80320; 80329; 81003; 81015; 83605; 83735; 84484; 85025; 87086; 93010

== ENCOUNTER 2022-12-22 15:14 | Outpatient (REF) | payer MEDICAID, SELFPAY ==
[2022-12-27 01:40] LABS: Methylphenidate 404 ng/mL (Cutoff: 10); Ritalinic Acid 19367 ng/mL (Cutoff: 50)
== END 2022-12-22 15:15 | disposition home or self-care (01) ==
LOC: NCHCN 15:14
PROVIDERS: Visit Provider Physician Assistant
DX: F15.20 Other stimulant dependence, uncomplicated (principal); Z51.81 Encounter for therapeutic drug level monitoring
CPT/HCPCS: 80360

== ENCOUNTER 2023-03-06 00:29 | Outpatient (CLI) | payer OTHER, SELFPAY ==
--- NOTE | 2023-03-06 09:45 | DI.RAD_ITS ---
Exam(s) XR HIP LT COMPLETE AP PELVIS XR HIP RT COMPLETE AP PELVIS EXAM: XR HIP RT COMPLETE AP PELVIS INDICATION: LATERAL HIP AND PELVIC PAIN, DISABILITY DETERMINATION Z02.71. COMPARISON: CR BILATERAL HIPS ADULT from 02/28/2016 CR XR HIP LT COMPLETE AP PELVIS from 03/06/2023 TECHNIQUE: 2D digital imaging was performed. Three views. FINDINGS: Screws are again noted through both femoral necks. There is no surrounding lucency. There is no dangelo dence of acute fracture. The hip joint spaces are maintained. There is mild bilateral acetabular sp urring. Spurring at the margins of the femoral heads are also present, not significantly changed. T he SI joints and pubic symphysis are unremarkable. IMPRESSION: Stable mild degenerative changes of both hips. Status post bilateral hip pinning. DATA REPOSITORY: RADIATION DOSE DELIVERED:
== END 2023-03-06 00:49 ==
PROVIDERS: Visit Provider Pediatrics Pediatric Rheumatology
DX: Z02.71 Encounter for disability determination (principal); Z98.890 Other specified postprocedural states
CPT/HCPCS: 73502